=== PATIENT | female | born 1975 | race Caucasian/White ===

== ENCOUNTER → 2020-10-15 09:09 | Outpatient (BNVA) | payer OTHER, SELFPAY | PROVIDERS: Family Provider Nurse Practitioner; PCP Nurse Practitioner; Visit Provider Nurse Practitioner Family | DX: Z20.828 Contact with and (suspected) exposure to other viral communicable diseases (principal); J06.9 Acute upper respiratory infection, unspecified | CPT/HCPCS: 87635 ==

== ENCOUNTER 2021-01-03 09:49 | Emergency (ER) | payer SELFPAY ==
[2021-01-03 10:00] VITALS: BP 134/93; PULSE 77; RESP 16; TEMP 36.8; O2SAT 99; BMI 27.6
--- NOTE | 2021-01-03 10:12 | XR_ITS ---
WS: [id number] Portable AP upright chest, 01/03/2021 Clinical Data: chest pain Comparison: PA and lateral chest, 01/26/2019. Findings: No masses or effusions are seen. The left lower lobe nodule adjacent to left cardiac border has not changed. The heart is normal. The pulmonary vascularity is not increased. No pneumonia or pn eumothorax is seen. Monitor leads on the chest wall. XR/XR chest 1V portable [id number] Impression: Negative chest.
--- NOTE | 2021-01-03 10:13 | ECG_ITS ---
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 Measurements Intervals [place] Rate: 76 P: 37 MT: 169 QRS: 39 QRSD: 91 T: 29 QT: 359 QTc: 404 Interpretive Statements SINUS RHYTHM Compared to ECG 01/26/2019 12:40:21 No significant changes Electronically Signed On 01-03-2021 18:28:23 JIGSAW OPERATOR by Chauncey Rocha M.D. [email or web address]/[id number] f
--- NOTE | 2021-01-03 10:29 | ED_ITS ---
HPI - Chest Pain General: Chief Complaint: Chest Pain Stated Complaint: CP Time Seen by Provider: 01/03/21 09:50 History of Present Illness: HPI narrative: 45-year-old female comes in with chest pain intermittently x3 weeks. 2 days ago had a episode with incresed intesnity and N/V and slightly dyspneic. No radiation of pain. No chest pain at the time she was seen. She smokes, has a hx of hep C and esophogeal erosions. Patient also has a history of panic attacks which she added to her history when seen initially. MD complaint: chest pain Onset (ago): week(s) (3) Timing of current episode: episodic Prior episodes: Yes Pain location: left chest Pain radiation: left arm Severity: moderate Quality: tightness and heaviness Relieving factors: nothing Exacerbating factors: nothing Associated symptoms: Deny abdominal pain, dyspnea, fever(s), nausea or vomiting Review of Systems Const: Denies: fever(s), chills, body aches, change in appetite, fatigue or malaise ENMT: Denies: throat pain, ear or mastoid pain, nasal discharge or nasal congestion Card: Denies: chest pain, edema, dyspnea on exertion or orthopnea Resp: Denies: dyspnea, productive cough or non-productive cough GI: Denies: abdominal pain, nausea, vomiting, hematemesis, coffee ground emesis, diarrhea, constipation, bloating, hematochezia or melena : Denies: flank pain, difficulty voiding, dysuria, urinary frequency or urinary urgency Skin/Breast: Denies: rash or pruritus PFSH ED PFSH: Social History Smoking and tobacco status: current every day smoker Alcohol intake: unknown Physical Exam Const: COMMON NORMALS: no acute distress GENERAL APPEARANCE: cooperative and comfortable ORIENTATION/CONSCIOUSNESS: Yes awake, Yes oriented to person, Yes oriented to place and Yes oriented to time HENMT: COMMON NORMALS: normocephalic, atraumatic and hearing grossly normal bilaterally HEAD & SCALP: normocephalic and atraumatic Neck/C-Spine: COMMON NORMALS: no JVD Resp: COMMON NORMALS: normal respiratory effort, No retractions, No use of accessory muscles and clear to auscultation bilaterally AUSCULTATION: clear to auscultation bilaterally Cardio: COMMON NORMALS: no JVD, regular rate, regular rhythm and No murmurs present (Cardio) RATE: regular rate RHYTHM: regular rhythm GI: COMMON NORMALS: Soft to palpation and No hepatosplenomegaly present AUSCULTATION: Yes normoactive bowel sounds PALPATION: Yes Soft to palpation, No Tenderness to palpation present (GI), No Guarding due to palpation present (GI) and Yes No hepatosplenomegaly present Extremity: COMMON NORMALS: normal to inspection, capillary refill normal, no clubbing, cyanosis or edema, no calf tenderness and no pedal edema Neuro: SENSORIUM/ORIENTATION: Yes oriented to person, Yes oriented to place and Yes oriented to time Skin: COMMON NORMALS: no rashes or lesions noted GENERAL SKIN EXAM: no rashes or lesions noted Course Vital Signs: Vital signs: Vital Signs Temperature 98.2 F 01/03/21 10:00 Pulse Rate 78 01/03/21 12:51 Respiratory Rate 18 01/03/21 12:51 Blood Pressure 125/84 01/03/21 12:51 Pulse Oximetry 97 01/03/21 12:51 MDM - Chest Pain MDM Narrative: Medical decision making narrative: EKG unremarkable troponin is negative. We will go ahead and discharge patient home started on aspirin and Protonix that she is convinced that this is all anxiety I did encourage her to still complete the sestamibi stress test she has recurrent symptoms return. Lab Data: Labs: Lab Results 01/03/21 01/03/21 01/03/21 Range/Units 10:30 10:30 10:30 WBC 8.5 (4.0-10.0) 10^3/ uL RBC 4.58 (4.1-5.3) 10^6/u L Hgb 14.7 (11.5-15.3) g/dL Hct 43.8 (37.0-47.0) % MCV 95.6 (81-99) fL MCH 32.1 (28.0-34.0) pg MCHC 33.6 (30.0-36.0) g/dL RDW 11.8 L (12.1-15.1) % Plt Count 312 (130-400) 10^3/c mm MPV 10.5 H (7.4-10.4) fL Neut % (Auto) 61.5 % Lymph % (Auto) 30.0 % [place] % (Auto) 5.6 % Eos % (Auto) 2.1 % Baso % (Auto) 0.6 % Neut # (Auto) 5.23 (1.8-7.7) 10^3/u L Lymph # (Auto) 2.6 (0.8-4.8) 10^3/u L [place] # (Auto) 0.5 (0.2-0.9) 10^3/u L Eos # (Auto) 0.2 (0.0-0.8) 10^3/u L Baso # (Auto) 0.1 (0.0-0.1) 10^3/u L Nucleated RBC % (a uto) 0 % Nucleated RBCs # 0.0 /100WBC Sodium 136 (136-145) mmol/L Potassium 4.1 (3.5-5.1) mmol/L Chloride 102 (98-107) mmol/L Carbon Dioxide 27 (22-29) mmol/L Anion Gap 11.1 (5-19) BUN 8 (6-20) mg/dL Creatinine 0.7 (0.5-0.9) mg/dL GFR Calculation 90.9 (90-130) mL/min Glucose 85 (65-115) mg/dL Calculated Osmolal ity 280 L (285-295) mOsm/k g Calcium 9.3 (8.5-10.5) mg/dL Total Bilirubin 0.3 (0.15-1.2) mg/dL AST 25 (0-32) U/L ALT 33 (0-33) U/L Alkaline Phosphata se 75 (35-105) IU/L Troponin T Baselin e 6 (0-10) ng/L Total Protein 8.2 (6.6-8.7) g/dL Albumin 4.7 (3.5-5.2) g/dL Globulin 3.5 (1.3-4.6) g/dL Discharge Plan Discharge Patient Disposition: Home Clinical Impression: Atypical chest pain Condition: Stable Prescriptions: New aspirin 81 mg tablet,delayed release (DR/EC) 81 mg PO DAILY Qty: 30 RF: 0 Protonix 40 mg tablet,delayed release (DR/EC) 40 mg PO QAM 56 Days Qty: 56 RF: 0 Discharge Orders: Discharge ED (Routine); Ordered 01/03/21 Ordered By: Rangel Srinivasan Referrals: Julieta Bermudez FNP [Primary Care Provider] - Discharge Diet: Usual diet Discharge Activity: Limit activity as instructed Patient Instructions: Opioid Safety Activity Restrictions/Additional Instructions: Case management will call with an appointment for a sestamibi stress test. Return to the emergency room if you have further problems. Coding Level of Care Code ED Basket Grader for Panda Fwguille Exam Comprehensive
[2021-01-03 10:35] LABS: Basophils # 0.1 10^3/uL (0.0-0.1); Basophils % 0.6 %; Eosinophils # 0.2 10^3/uL (0.0-0.8); Eosinophils % 2.1 %; Hematocrit 43.8 % (37.0-47.0); Hemoglobin 14.7 g/dL (11.5-15.3); Lymphocytes # 2.6 10^3/uL (0.8-4.8); Mean Corpuscular HGB Conc 33.6 g/dL (30.0-36.0); Mean Corpuscular Hemoglobin 32.1 pg (28.0-34.0); Mean Corpuscular Volume 95.6 fL (81-99); Mean Platelet Volume 10.5 fL (7.4-10.4); Monocytes # 0.5 10^3/uL (0.2-0.9); Monocytes % 5.6 %; Neutrophils # 5.23 10^3/uL (1.8-7.7); Neutrophils % 61.5 %; Nucleated Red Blood Cells % 0 %; Platelet Count 312 10^3/cmm (130-400); Red Blood Count 4.58 10^6/uL (4.1-5.3); Red Cell Distribution Width 11.8 % (12.1-15.1); White Blood Count 8.5 10^3/uL (4.0-10.0)
[2021-01-03 10:40] VITALS: BP 127/94; PULSE 78; RESP 14; O2SAT 96
[2021-01-03 10:49] VITALS: RESP 17
[2021-01-03 10:53] LABS: Alanine Aminotransferase 33 U/L (0-33); Albumin Level 4.7 g/dL (3.5-5.2); Alkaline Phosphatase 75 IU/L (35-105); Anion Gap 11.1 (5-19); Aspartate Amino Transferase 25 U/L (0-32); Blood Urea Nitrogen 8 mg/dL (6-20); Calcium 9.3 mg/dL (8.5-10.5); Carbon Dioxide 27 mmol/L (22-29); Chloride 102 mmol/L (98-107); Globulin 3.5 g/dL (1.3-4.6); Glomerular Filtration Rate 90.9 mL/min (90-130); Glucose 85 mg/dL (65-115); Osmolality Calculated 280 mOsm/kg (285-295); Potassium 4.1 mmol/L (3.5-5.1); Sodium 136 mmol/L (136-145); Total Bilirubin 0.3 mg/dL (0.15-1.2); Total Protein 8.2 g/dL (6.6-8.7); Troponin(5th) Baseline 6 ng/L (0-10)
[2021-01-03 11:49] VITALS: BP 122/84; PULSE 75; RESP 19; O2SAT 96
[2021-01-03 12:00] VITALS: BP 125/84; PULSE 78; RESP 18; O2SAT 97
[2021-01-03 12:51] VITALS: BP 125/84; PULSE 78; RESP 18; O2SAT 97
--- NOTE | 2021-01-07 07:25 | DCPLANNER ---
warehouse manager had message to schedule an outpatient stress test for patient. warehouse manager faxed signed order to centralized scheduling for the test to be scheduled. warehouse manager will call for appointment information.
--- NOTE | 2021-01-16 09:18 | DCPLANNER ---
Patient has an outpatient stress test scheduled for Friday, January 22, 2021 at 10:00. Centralized scheduling will call patient with appointment information.
--- NOTE | 2021-01-23 15:52 | DCPLANNER ---
Patient had a follow up appointment scheduled for 01.22.21 for an outpatient stress test - patient did not attend appointment.
== END 2021-01-03 12:51 | disposition home or self-care (01) ==
PROVIDERS: Emergency Provider Family Medicine; PCP Nurse Practitioner
DX: R07.89 Other chest pain (principal); F17.210 Nicotine dependence, cigarettes, uncomplicated
CPT/HCPCS: 71045; 80053; 84484; 85025; 93005; 99283

== ENCOUNTER → 2021-07-11 09:34 | Outpatient (BNVA) | payer OTHER, SELFPAY | PROVIDERS: PCP Nurse Practitioner; Visit Provider Nurse Practitioner Family | DX: Z20.822 Contact with and (suspected) exposure to COVID-19 (principal) | CPT/HCPCS: 87635 ==

== ENCOUNTER 2021-09-21 09:57 | Emergency (ER) | payer MEDICAID, SELFPAY ==
[2021-09-21 10:04] VITALS: BP 137/99; PULSE 86; RESP 18; TEMP 36.7; O2SAT 95; BMI 26.4
--- NOTE | 2021-09-21 10:10 | ED_ITS ---
HPI - GI Bleed General: Chief complaint: GI Bleed Stated complaint: ABD PAIN; VOGT X 1 WEEK; BLOOD STOOL Time Seen by Provider: 09/21/21 10:09 History of Present Illness: HPI Narrative: Ms. Irizarry is a 46-year-old lady with significant past medical history of hepatitis C who presents to the emergency department due to abdominal pain and headache. Symptom onset was subacute approximately 1 week ago. She initially endorses left upper quadrant abdominal pain which is sharp in nature and episodic. She subsequently developed a right sided headache. She does have a history of headaches. Overall intensity of symptoms is moderate. Course has been worsening. No associated new neurologic symptoms with this. Associated with her abdominal pain she has had nausea but no vomiting. She has had blood in her stool after bowel movements and wiping. No other specific exacerbating, alleviating, or provoking factors identified. No reported signs of systemic illness. Review of Systems General: Reports: 10 or more systems reviewed and unremarkable except in HPI and below PFSH ED PFSH: Social History Smoking and tobacco status: current every day smoker Alcohol intake: unknown Physical Exam Narrative: EXAM NARRATIVE: GENERAL/CONSTITUTIONAL - well-appearing. No acute distress. Eyes - PERRL, no conjunctival injection ENMT - Atraumatic external nose and ears. Moist mucous membranes NECK - supple. trachea midline CARDIOVASCULAR - regular rate and rhythm. RESPIRATORY -clear to auscultation bilaterally. ABDOMEN/GI -generalized tenderness palpation without evidence of peritonitis. MSK - Extremities without obvious deformity or tenderness to palpation SKIN - Warm, Dry NEURO - alert and appropriately oriented. No focal neurologic deficits. Course ED course: - Patient was seen and evaluated by me at bedside - Patient placed on cardiac monitors, IV access obtained - Initial evaluation notable for no acute distress, nontoxic appearance. Abdominal exam as noted. No neurologic deficits, headache consistent with patient's baseline headache. - Labs notable for normal hemoglobin. - Imaging notable for no acute finding with exception of large amount of stool throughout the large bowel. - Prior to completion of ED evaluation including prior to rectal exam the patient left AGAINST MEDICAL ADVICE. The exact reason for patient leaving was somewhat unclear although reportedly patient desired to smoke. I was not notified until patient had already left ED and therefore patient did not receive any discharge instructions or results of ED evaluation. Vital Signs: Vital signs: Vital Signs Temperature 98.1 F 09/21/21 10:04 Pulse Rate 89 09/21/21 12:31 Respiratory Rate 16 09/21/21 12:31 Blood Pressure 133/72 09/21/21 12:31 Pulse Oximetry 97 09/21/21 12:31 MDM - GI Bleed Medical Records: Attestation: I reviewed the patient's medical records. Lab Data: Attestation: I reviewed the patient's lab results. Labs: Lab Results 09/21/21 09/21/21 09/21/21 10:15 10:15 10:23 WBC 8.2 10^3/uL 10^3/ uL (4.0-10.0) RBC 4.51 10^6/uL 10^6 /uL (4.1-5.3) Hgb 15.0 g/dL g/dL (11.5-15.3) Hct 42.7 % % (37.0-47.0) MCV 94.7 fl fl (81-99) MCH 33.3 pg pg (28.0-34.0) MCHC 35.1 g/dL g/dL (30.0-36.0) RDW 11.1 % L % (12.1-15.1) Plt Count 302 10^3/cmm 10^3 /cmm (130-400) MPV 11.0 fL H fL (7.4-10.4) Neut % (Auto) 65.6 % % Lymph % (Auto) 24.0 % % [place] % (Auto) 6.5 % % Eos % (Auto) 3.3 % % Baso % (Auto) 0.5 % % Neut # (Auto) 5.36 10^3/uL 10^3 /uL (1.8-7.7) Lymph # (Auto) 2.0 10^3/uL 10^3/ uL (0.8-4.8) [place] # (Auto) 0.5 10^3/uL 10^3/ uL (0.2-0.9) Eos # (Auto) 0.3 10^3/uL 10^3/ uL (0.0-0.8) Baso # (Auto) 0.0 10^3/uL 10^3/ uL (0.0-0.1) Nucleated RBC % (a uto) 0 % % Nucleated RBCs # 0.0 /100WBC /100W BC Sodium Potassium Chloride Carbon Dioxide Anion Gap BUN Creatinine GFR Calculation Glucose Calculated Osmolal ity Lactic Acid Lactate Calcium Total Bilirubin AST ALT Alkaline Phosphata se Total Protein Albumin Globulin Lipase HCG, Qual Negative (Negative) Urine Color Yellow (Yellow) Urine Appearance Cloudy (CLEAR) Urine pH 9 H (5-7) Ur Specific Gravit y 1.015 (1.005-1.030) Urine Protein Neg (Negative) Urine Glucose (UA) Norm (Normal) Urine Ketones Negative (Negative) Urine Blood Neg (Negative) Urine Nitrate Negative (Negative) Urine Bilirubin Neg (Negative) Prot Sulfosalicyli c Acd Negative (Negative) Urine Urobilinogen Norm mg/dL mg/dL (Negative) Ur Leukocyte Griselda ase Negative (Negative) Urine RBC None /hpf /hpf (0-2) Urine WBC None /hpf /hpf (0-5) Ur Squamous Epith Cells 0-4 /hpf H /hpf (0-5) Amorphous Sediment 3+ /hpf /hpf Urine Bacteria Trace /hpf /hpf (NONE) 09/21/21 09/21/21 09/21/21 10:23 10:23 11:42 WBC RBC Hgb Hct MCV MCH MCHC RDW Plt Count MPV Neut % (Auto) Lymph % (Auto) [place] % (Auto) Eos % (Auto) Baso % (Auto) Neut # (Auto) Lymph # (Auto) [place] # (Auto) Eos # (Auto) Baso # (Auto) Nucleated RBC % (a uto) Nucleated RBCs # Sodium 135 mmol/L L mmol /L (136-145) Potassium 4.5 mmol/L mmol/L (3.5-5.1) Chloride 96 mmol/L L mmol/ L (98-107) Carbon Dioxide 28 mmol/L mmol/L (22-29) Anion Gap 15.5 (5-19) BUN 7 mg/dL mg/dL (6-20) Creatinine 0.8 mg/dL mg/dL (0.5-0.9) GFR Calculation 77.6 mL/min L mL/ min (90-130) Glucose 92 mg/dL mg/dL (65-115) Calculated Osmolal ity 278 mOsm/kg L mOs m/kg (285-295) Lactic Acid 0.4 mmol/L L mmol /L (0.5-2.2) Lactate Cancelled Calcium 9.5 mg/dL mg/dL (8.5-10.5) Total Bilirubin 0.2 mg/dL mg/dL (0.15-1.2) AST 26 U/L U/L (0-32) ALT 35 U/L H U/L (0-33) Alkaline Phosphata se 80 IU/L IU/L (35-105) Total Protein 7.4 g/dL g/dL (6.6-8.7) Albumin 4.4 g/dL g/dL (3.5-5.2) Globulin 3.0 g/dL g/dL (1.3-4.6) Lipase 23 U/L U/L (13-60) HCG, Qual Urine Color Urine Appearance Urine pH Ur Specific Gravit y Urine Protein Urine Glucose (UA) Urine Ketones Urine Blood Urine Nitrate Urine Bilirubin Prot Sulfosalicyli c Acd Urine Urobilinogen Ur Leukocyte Griselda ase Urine RBC Urine WBC Ur Squamous Epith Cells Amorphous Sediment Urine Bacteria Discharge Plan Discharge Patient Disposition: Left Against Medical Advice Prescriptions: No Action No Known Home Medications RF: 0 Coding Level of Care Code ED Cutter Grinder Operator for Chg Kylee
[2021-09-21 10:28] VITALS: BP 132/96; PULSE 74; RESP 17; O2SAT 96
--- NOTE | 2021-09-21 10:29 | CTR_ITS ---
PROCEDURE INFORMATION: Exam: CT Abdomen And Pelvis With Contrast Exam date and time: 09/21/2021 10:29 AM Age: 46 years old Clinical indication: Abdominal pain; Localized; Left upper quadrant (luq); Additional info: Luq abdominal pain, melena TECHNIQUE: Imaging protocol: Computed tomography of the abdomen and pelvis with contrast. Radiation optimization: All CT scans at this facility use at least one of these dose optimization techniques: automated exposure control; mA and/or kV adjustment per patient size (includes targeted exams where dose is matched to clinical indication); or iterative reconstruction. Contrast material: OMNI 300; Contrast volume: 95 ml; Contrast route: INTRAVENOUS (IV); COMPARISON: CT chest wo con [id number] 02/15/2019 1:09 PM RADIATION DOSE METRICS: Total DLP (mGy-cm): 1202.01 FINDINGS: Lungs: Mild dependent atelectasis is present. Liver: Normal. No mass. Gallbladder and bile ducts: Normal. No calcified stones. No ductal dilation. Pancreas: Normal. No ductal dilation. Spleen: Normal. No splenomegaly. Adrenal glands: Normal. No mass. Kidneys and ureters: Sub cm cyst lower pole right kidney Stomach and bowel: Large amount of stool throughout the large bowel. Appendix: No evidence of appendicitis. Intraperitoneal space: No free fluid within the pelvis or within the dependent portions of the peritoneum. Vasculature: Flow within the superior mesenteric artery, celiac trunk and inferior mesenteric arteries. Lymph nodes: Numerous small subcentimeter lymph nodes in the aorta caval region. Urinary bladder: Unremarkable as visualized. Reproductive: Prior hysterectomy. Small ovarian cyst bilaterally. Bones/joints: Unremarkable. No acute fracture. Soft tissues: Unremarkable. Other findings: No acute intra-abdominal process. No inflammatory process. No obstruction. CT/CT abdomen pelvis w con* [id number] IMPRESSION: 1. No acute intra-abdominal process. No inflammatory process. No obstruction. 2. No free fluid within the pelvis or within the dependent portions of the peritoneum. 3. Large amount of stool throughout the large bowel. 4. Small ovarian cyst bilaterally. COMMENTS: Consistent with the [employer]'s Incidental Findings Committee white paper (J Am Evy Radiol 2018): Any incidental renal lesion less than 1 cm or classified as too small to characterize, or any incidental cystic renal lesion characterized as simple-appearing, is likely benign. No follow-up imaging is recommended for these lesions per consensus recommendations based on imaging criteria. Radiation Dose CTDIVOL = (mGy): DLP = 1202.01 (mGy-cm)
[2021-09-21] MEDS: sodium chloride 0.9% 1,000 ML 999 ML IV (10:51)
[2021-09-21] MEDS: ondansetron 2 mg/ML SDV 2 mL 4 MG IVP (10:52)
[2021-09-21 10:53] VITALS: RESP 18
[2021-09-21] MEDS: pantoprazole 40 mg SDV 80 MG IVP (10:53)
[2021-09-21] MEDS: fentaNYL 50 mcg/mL INJ 2mL IVP (10:53)
[2021-09-21 10:58] VITALS: BP 132/96; PULSE 91; RESP 17; O2SAT 96
[2021-09-21 11:06] LABS: Add Urine Microscopic? YES; Bilirubin Urine Neg (Negative); Blood Urine Neg (Negative); Glucose Urine UA Norm (Normal); Ketones Urine Negative (Negative); Leukocyte Esterase Urine Negative (Negative); Nitrate Urine Negative (Negative); Protein Urine Neg (Negative); Specific Gravity, Urine 1.015 (1.005-1.030); Squamous Epithelial Cell Urine 0-4 /hpf (0-5); Sulfosalicylic Acid Urine Negative (Negative); Urine Appearance Cloudy (CLEAR); Urine Color Yellow (Yellow); Urobilinogen Urine Norm (Negative); pH Urine 9 (5-7)
[2021-09-21 11:07] LABS: Add Urine Culture? No; Amorphous Sediment Urine 3+ /hpf; Bacteria Urine TRACE /hpf; HCG Qualitative Urine. Negative (Negative)
[2021-09-21 11:17] LABS: Basophils % 0.5 %; Eosinophils # 0.3 10^3/uL (0.0-0.8); Eosinophils % 3.3 %; Hematocrit 42.7 % (37.0-47.0); Mean Corpuscular HGB Conc 35.1 g/dL (30.0-36.0); Mean Corpuscular Hemoglobin 33.3 pg (28.0-34.0); Mean Corpuscular Volume 94.7 fl (81-99); Monocytes # 0.5 10^3/uL (0.2-0.9); Monocytes % 6.5 %; Neutrophils # 5.36 10^3/uL (1.8-7.7); Neutrophils % 65.6 %; Nucleated Red Blood Cells % 0 %; Platelet Count 302 10^3/cmm (130-400); Red Blood Count 4.51 10^6/uL (4.1-5.3); Red Cell Distribution Width 11.1 % (12.1-15.1); White Blood Count 8.2 10^3/uL (4.0-10.0)
[2021-09-21 11:33] LABS: Alanine Aminotransferase 35 U/L (0-33); Albumin Level 4.4 g/dL (3.5-5.2); Alkaline Phosphatase 80 IU/L (35-105); Anion Gap 15.5 (5-19); Aspartate Amino Transferase 26 U/L (0-32); Blood Urea Nitrogen 7 mg/dL (6-20); Calcium 9.5 mg/dL (8.5-10.5); Carbon Dioxide 28 mmol/L (22-29); Chloride 96 mmol/L (98-107); Glomerular Filtration Rate 77.6 mL/min (90-130); Glucose 92 mg/dL (65-115); Lipase 23 U/L (13-60); Osmolality Calculated 278 mOsm/kg (285-295); Potassium 4.5 mmol/L (3.5-5.1); Sodium 135 mmol/L (136-145); Total Bilirubin 0.2 mg/dL (0.15-1.2); Total Protein 7.4 g/dL (6.6-8.7)
[2021-09-21] MEDS: iohexol 300 mg/mL 100 mL Btl IV (12:20)
[2021-09-21 12:31] VITALS: BP 133/72; PULSE 89; RESP 16; O2SAT 97
[2021-09-21 12:39] LABS: Lactic Sepsis W/Reflex 0.4 mmol/L (0.5-2.2)
== END 2021-09-21 14:20 | disposition left against medical advice (07) ==
PROVIDERS: Emergency Provider Emergency Medicine
DX: R10.9 Unspecified abdominal pain (principal); R51.9 Headache, unspecified; Z53.21 Procedure and treatment not carried out due to patient leaving prior to being seen by health care provider; F17.210 Nicotine dependence, cigarettes, uncomplicated; Z86.19 Personal history of other infectious and parasitic diseases
CPT/HCPCS: 36415; 74177; 80053; 81001; 81025; 83605; 83690; 85025; 96361; 96374; 96375; 99284; C9113; J2405; J3010; J7030; Q9967

== ENCOUNTER → 2022-02-23 15:56 | Outpatient (BNVA) | payer MEDICAID, SELFPAY | PROVIDERS: Visit Provider Internal Medicine | DX: B19.20 Unspecified viral hepatitis C without hepatic coma (principal); R76.8 Other specified abnormal immunological findings in serum | CPT/HCPCS: 80053; 82105; 86705; 86706; 87340; 87522; 87902 ==

== ENCOUNTER 2022-05-06 13:46 | Oncology outpatient (recurring) (ONCR) | payer MEDICAID, SELFPAY | END 2022-05-06 23:59 | disposition home or self-care (01) | PROVIDERS: Visit Provider Internal Medicine Medical Oncology | DX: E83.110 Hereditary hemochromatosis (principal) | CPT/HCPCS: 99215 ==

== ENCOUNTER 2022-06-04 12:12 | Outpatient (CLI) | payer MEDICAID, SELFPAY ==
[2022-06-06 19:12] LABS: HEP C RNA Viral Load Quant <1.18 NOT DETECTED Log IU/mL (NOT DETECTED); HEP C RNA Viral Load Quant <15 NOT DETECTED IU/mL (NOT DETECTED)
== END 2022-06-04 12:13 | disposition home or self-care (01) ==
LOC: LAB 12:15
PROVIDERS: PCP Nurse Practitioner Family; Visit Provider Internal Medicine
DX: B19.20 Unspecified viral hepatitis C without hepatic coma (principal)
CPT/HCPCS: 87522

== ENCOUNTER 2023-08-03 08:54 | Emergency (ER) | payer MEDICAID, SELFPAY ==
--- NOTE | 2023-08-03 09:02 | ECG_ITS ---
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 Measurements Intervals [place] Rate: 85 P: 24 MD: 159 QRS: 17 QRSD: 97 T: 29 QT: 360 QTc: 430 Interpretive Statements SINUS RHYTHM LOW QRS VOLTAGE IN PRECORDIAL LEADS [QRS DEFLECTION < 1.0 mV IN CHEST LEADS] INTERPRETATION BASED ON A DEFAULT AGE OF 40 YEARS Compared to ECG 01/03/2021 10:05:34 Low QRS voltage now present Electronically Signed On 08-03-2023 12:56:10 CDT by Maria Elena Tim M.D. [id number] f
[2023-08-03 09:07] VITALS: BP 162/119; PULSE 91; RESP 18; TEMP 36.8; O2SAT 93; BMI 28.3
--- NOTE | 2023-08-03 09:09 | XR_ITS ---
WS: [id number] EXAMINATION: XR chest 1V portable [id number] REASON FOR EXAM: dyspnea/cough COMPARISON: 01/03/2021 ORDER DATE: 08/03/2023 9:12 AM TECHNIQUE: A single, portable frontal chest x-ray was obtained. X-RAY FINDINGS: The lungs are clear. Pleural spaces are clear. No pleural effusions or pneumothorax. Cardiomediastinal silhouette is normal. No evidence for pulmonary edema. Soft tissue and osseous structures are unremarkable. No tubes or lines are present. IMPRESSION: Unremarkable frontal portable chest x-ray.
--- NOTE | 2023-08-03 09:10 | W.ED.GENADLT ---
HPI - General Adult General: Chief complaint: Weakness Stated complaint: right side weakness, chest pain Time Seen by Provider: 08/03/23 09:05 Source: patient Mode of arrival: ambulatory History of Present Illness: 47-year-old female presents emergency room complaining of weakness in her right arm. Over the weekend about 3 days ago she passed out while coming home. She was out for period of time when she got home she passed out again. When she woke up she said her right arm she could not extend at the wrist. She is able to grasp objects but she can extend the wrist no other symptoms or focal neurologic deficits noted she is at some chest and epigastric discomfort but that has resolved. Associated symptoms: Deny dyspnea or headache(s) Review of Systems Const: Denies: chills Resp: Denies: dyspnea GI: Denies: abdominal pain : Denies: dysuria Musc: Denies: neck pain or back pain Skin/Breast: Denies: pruritus Neuro: Denies: headache(s) PFS ED PFSH: Medical History Anxiety and depression GERD (gastroesophageal reflux disease) Hepatitis C without hepatic coma History of intravenous drug use in remission Nicotine dependence, unspecified, uncomplicated Panic disorder [episodic paroxysmal anxiety] Polysubstance abuse Unspecified asthma, uncomplicated Surgical History History of hysterectomy (2009) Family History Grandfather No problems noted. Father Hypertension CAD (coronary artery disease) Dementia Mother Cancer Lung cancer Lung disease Sister Clotting disorder Other Chronic kidney disease (CKD) Hyperlipidemia Psychiatric illness Stroke Denies family history of Diabetes Suicide Anesthesia complication Bleeding disorder Social History Smoking and tobacco status: current every day smoker (1 ppd) cigarettes Packs smoked per day: 1 Alcohol intake: former Substance/Drug Use: former Physical Exam Const: GENERAL APPEARANCE: cooperative and comfortable ORIENTATION/CONSCIOUSNESS: Yes awake, Yes oriented to person, Yes oriented to place and Yes oriented to time HENMT: COMMON NORMALS: normocephalic, atraumatic and hearing grossly normal bilaterally HEAD & SCALP: normocephalic and atraumatic Resp: COMMON NORMALS: normal respiratory effort, No retractions, No use of accessory muscles and clear to auscultation bilaterally AUSCULTATION: clear to auscultation bilaterally Cardio: COMMON NORMALS: regular rate, regular rhythm and No murmurs present (Cardio) RATE: regular rate RHYTHM: regular rhythm GI: COMMON NORMALS: Soft to palpation and No hepatosplenomegaly present AUSCULTATION: Yes normoactive bowel sounds PALPATION: Yes Soft to palpation, No Tenderness to palpation present (GI), No Guarding due to palpation present (GI) and Yes No hepatosplenomegaly present Extremity: COMMON NORMALS: normal to inspection, capillary refill normal, no clubbing, cyanosis or edema, no calf tenderness and no pedal edema OTHER: Radial nerve deficit in the right arm unable to extend at the wrist the remainder of her extremity exam is normal otherwise she is neurovascular intact no other focal neurologic deficits are noted on exam. Cranial nerves II to XII otherwise grossly intact. Neuro: SENSORIUM/ORIENTATION: Yes oriented to person, Yes oriented to place and Yes oriented to time Skin: COMMON NORMALS: no rashes or lesions noted GENERAL SKIN EXAM: no rashes or lesions noted Course Vital Signs: Vital signs: Vital Signs Temperature 98.2 F 08/03/23 09:07 Pulse Rate 87 08/03/23 11:20 Respiratory Rate 16 08/03/23 11:20 Blood Pressure 129/98 08/03/23 11:20 Pulse Oximetry 97 08/03/23 11:20 Oxygen Delivery Me thod Room Air 08/03/23 10:07 [facility] - General Adult Medical Decision Making Patient has a history of alcohol abuse she did pass out recently suspect she has a radial nerve palsy she has no other focal neurologic deficits we will place her in a cock-up splint and refer her to physical therapy and neurology. Discussed the etiology of the deficit with her. She concurs that this is very likely what happened. Her syncopal episode was due to alcohol use by her own admission. Medical Records I reviewed the patient's medical records. Lab Data I reviewed the patient's lab results. 08/03/23 09:19 10 09:19 Laboratory Results WBC 7.91 10^3/uL (3.29-11.43) 08/03/23 09:19 RBC 4.65 10^6/uL (3.85-5.65) 08/03/23 09:19 Hgb 15.60 g/dL (11.27-16.99) 08/03/23 09:19 Hct 45.5 % (36-47) 08/03/23 09:19 MCV 97.8 fl (85-98) 08/03/23 09:19 MCH 33.5 pg (27-33) H 08/03/23 09:19 MCHC 34.3 g/dL (30-55) 08/03/23 09:19 RDW 11.9 % (12.1-15.1) L 08/03/23 09:19 Plt Count 261 10^3/cmm (157-399) 08/03/23 09:19 MPV 9.9 fL (7.4-10.4) 08/03/23 09:19 Neut % (Auto) 68.8 % 08/03/23 09:19 Lymph % (Auto) 22.5 % 08/03/23 09:19 [place] % (Auto) 4.6 % 08/03/23 09:19 Eos % (Auto) 3.5 % 08/03/23 09:19 Baso % (Auto) 0.3 % 08/03/23 09:19 Neut # (Auto) 5.45 10^3/uL (1.8-7.7) 08/03/23 09:19 Lymph # (Auto) 1.8 10^3/uL (0.8-4.8) 08/03/23 09:19 [place] # (Auto) 0.4 10^3/uL (0.2-0.9) 08/03/23 09:19 Eos # (Auto) 0.3 10^3/uL (0.0-0.8) 08/03/23 09:19 Baso # (Auto) 0.0 10^3/uL (0.0-0.1) 08/03/23 09:19 Nucleated RBC % (auto) 0 % 08/03/23 09:19 Nucleated RBCs # 0.0 /100WBC 08/03/23 09:19 Sodium 137 mmol/L (136-145) 08/03/23 09:19 Potassium 4.0 mmol/L (3.5-5.1) 08/03/23 09:19 Chloride 100 mmol/L (98-107) 08/03/23 09:19 Carbon Dioxide 27 mmol/L (22-29) 08/03/23 09:19 Anion Gap 14.0 (5-19) 08/03/23 09:19 BUN 9 mg/dL (6-20) 08/03/23 09:19 Creatinine 0.8 mg/dL (0.5-0.9) 08/03/23 09:19 GFR Calculation 77.2 mL/min (90-130) L 08/03/23 09:19 Glucose 107 mg/dL (65-115) 08/03/23 09:19 Calculated Osmolality 283 mOsm/kg (285-295) L 08/03/23 09:19 Calcium 8.9 mg/dL (8.5-10.5) 08/03/23 09:19 Total Bilirubin 0.3 mg/dL (0.15-1.2) 08/03/23 09:19 AST 16 U/L (0-32) 08/03/23 09:19 ALT 19 U/L (0-33) 08/03/23 09:19 Alkaline Phosphatase 91 U/L (35-105) 08/03/23 09:19 Troponin T Baseline 7 ng/L (0-10) 08/03/23 09:19 Total Protein 6.9 g/dL (6.6-8.7) 08/03/23 09:19 Albumin 4.1 g/dL (3.5-5.2) 08/03/23 09:19 Globulin 2.8 g/dL (1.3-4.6) 08/03/23 09:19 All radiology interpretation(s) finalized by discharge Discharge Plan Discharge Patient Disposition: Home Clinical Impression: Acute radial nerve palsy Condition: Stable Prescriptions: New prednisone 20 mg tablet 20 mg PO TID Qty: 15 0RF Rx Instructions: 1 p.o. 3 times daily x3 days, 1 p.o. twice daily x2 days, 1 p.o. daily x2 days Discharge Orders: Discharge ED (Routine); Ordered 08/03/23 Ordered By: Rangel Srinivasan Referrals: Michelle Martinez FNP [Primary Care Provider] - Discharge Diet: Usual diet Discharge Activity: Increase activity as tolerated Patient Instructions: Opioid Safety, Pain Management Activity Restrictions/Additional Instructions: Wear splint until released. Case management make arrangements for you to follow-up with neurology. Coding Level of Care Code ED Legal Executive for Panda Pichardo
--- NOTE | 2023-08-03 09:13 | CT_ITS ---
WS: [id number] CT HEAD TECHNIQUE: Noncontrast CT of the head obtained from the skullbase to the vertex. CLINICAL INFORMATION: POSSILBE POST STROKE COMPARISON: 11/09/2011 DLP: 989.[address] scans at [facility] use at least one of these dose optimization techniques: automated e xposure control; mA and/or kV adjustment per patient size (includes targeted exams where dose is matc hed to clinical indication); or iterative reconstruction. FINDINGS: No evidence of intracranial hemorrhage or mass effect. Ventricular system and basal cisterns are jimenez nt. No extra-axial fluid collections. No evidence of mass or mass effect. Normal cavazos-white different iation. Incidental slightly low-lying cerebellar tonsils. Paranasal sinuses and mastoid air cells are well aerated. .Normal visualized soft tissues. IMPRESSION: 1. No evidence of intracranial hemorrhage or mass effect. 2. No acute intracranial findings.
[2023-08-03 09:25] LABS: Basophils % 0.3 %; Eosinophils # 0.3 10^3/uL (0.0-0.8); Eosinophils % 3.5 %; Hematocrit 45.5 % (36-47); Lymphocytes # 1.8 10^3/uL (0.8-4.8); Lymphocytes % 22.5 %; Mean Corpuscular HGB Conc 34.3 g/dL (30-55); Mean Corpuscular Hemoglobin 33.5 pg (27-33); Mean Corpuscular Volume 97.8 fl (85-98); Mean Platelet Volume 9.9 fL (7.4-10.4); Monocytes # 0.4 10^3/uL (0.2-0.9); Monocytes % 4.6 %; Neutrophils # 5.45 10^3/uL (1.8-7.7); Neutrophils % 68.8 %; Nucleated Red Blood Cells % 0 %; Platelet Count 261 10^3/cmm (157-399); Red Blood Count 4.65 10^6/uL (3.85-5.65); Red Cell Distribution Width 11.9 % (12.1-15.1); White Blood Count 7.91 10^3/uL (3.29-11.43)
--- NOTE | 2023-08-03 09:30 | PC.PHAR ---
pt states she takes no rx or otc medications-ext med history shows no meds-pt states she hasnt taken meds in over 5 months
[2023-08-03 09:31] VITALS: BP 159/101; PULSE 90; RESP 18; O2SAT 100
--- NOTE | 2023-08-03 09:33 | PC.NURSE ---
pt is currently hypertensive, pt does not have HTN hx
[2023-08-03] MEDS: sucralfate 1 gm Tablet PO (09:51)
[2023-08-03 09:59] LABS: Alanine Aminotransferase 19 U/L (0-33); Albumin Level 4.1 g/dL (3.5-5.2); Alkaline Phosphatase 91 U/L (35-105); Aspartate Amino Transferase 16 U/L (0-32); Blood Urea Nitrogen 9 mg/dL (6-20); Calcium 8.9 mg/dL (8.5-10.5); Carbon Dioxide 27 mmol/L (22-29); Chloride 100 mmol/L (98-107); Globulin 2.8 g/dL (1.3-4.6); Glomerular Filtration Rate 77.2 mL/min (90-130); Glucose 107 mg/dL (65-115); Osmolality Calculated 283 mOsm/kg (285-295); Sodium 137 mmol/L (136-145); Total Bilirubin 0.3 mg/dL (0.15-1.2); Total Protein 6.9 g/dL (6.6-8.7)
[2023-08-03 10:06] LABS: Troponin(5th) Baseline 7 ng/L (0-10)
[2023-08-03 10:07] VITALS: BP 124/92; PULSE 75; RESP 16; O2SAT 97
[2023-08-03 11:20] VITALS: BP 129/98; PULSE 87; RESP 16; O2SAT 97
--- NOTE | 2023-08-03 14:44 | PC.SOCIAL ---
Neurology Follow Up Patient's referral sent to neurology at this time. Clinic to contact patient with appt date/time.
--- NOTE | 2023-08-07 14:27 | PC.SOCIAL ---
PT Pt referral sent at this time. Clinic to contact patient with appt. date/time.
== END 2023-08-03 11:23 | disposition home or self-care (01) ==
PROVIDERS: Emergency Provider Family Medicine; PCP Nurse Practitioner Family
DX: G56.31 Lesion of radial nerve, right upper limb (principal); Z86.19 Personal history of other infectious and parasitic diseases; F17.210 Nicotine dependence, cigarettes, uncomplicated
CPT/HCPCS: 70450; 71045; 80053; 84484; 85025; 93005; 99285

== ENCOUNTER 2025-01-26 09:16 | Emergency (ER) | payer BC, MEDICAID, SELFPAY ==
[2025-01-26 09:38] VITALS: BP 175/109; PULSE 89; RESP 20; TEMP 36.4; O2SAT 98; BMI 30.9
--- NOTE | 2025-01-26 09:51 | XR_ITS ---
WS: [id number] Exam: XR hand LT min 3V* [id number] Date/Time of Exam: 01/26/2025 10:30 AM Reason For Exam: injury No acute fracture. The joints are preserved. A ring obscures parts of the fourth proximal phalanx. No soft tissue foreign bodies are seen. XR/XR hand LT min 3V* [id number] IMPRESSION: 1. No fracture or other significant finding.
--- NOTE | 2025-01-26 11:44 | W.ED.UPPEXIN ---
HPI - Extremity Injury (Upper) General: Chief Complaint: Extremity Injury, Upper Stated Complaint: lt hand inj Time Seen by Provider: 01/26/25 09:23 Source: patient Mode of arrival: ambulatory Limitations: no limitations History of Present Illness: Patient is a 49-year-old female presents to ED today complaining of left hand pain that began yesterday after she accidentally dropped a concrete block on it. She does report swelling. No obvious deformity. MD complaint: injury to: left and hand Onset (ago): day(s) (yesterday) Other Extremity Injury: Left: hand Other injuries: none Place: home Severity: moderate Relieving factors: immobilization Exacerbating factors: movement of extremity Context: direct blow Associated symptoms: Reports no associated symptoms; Denies weakness in extremities Related Data Previous Rx's ?Medication ?Instructions ?Recorded prednisone 20 mg tablet 20 mg PO TID #15 tabs 08/03/23 Allergies Allergy/AdvReac Type Severity Reaction Status Date / Time codeine Allergy rash Verified 01/26/25 09:46 fentanyl Allergy ADR-Agitate Verified 01/26/25 09:46 d Review of Systems Musc: Reports: extremity pain (L hand) and extremity swelling (L hand) Neuro: Denies: numbness in extremities, weakness in extremities or sensory changes PFSH ED PFSH: Medical History History of intravenous drug use in remission Anxiety and depression Polysubstance abuse Panic disorder [episodic paroxysmal anxiety] Nicotine dependence, unspecified, uncomplicated Unspecified asthma, uncomplicated GERD (gastroesophageal reflux disease) Hepatitis C without hepatic coma Surgical History History of hysterectomy (2009) Family History Grandfather No problems noted. Father Hypertension CAD (coronary artery disease) Dementia Mother Cancer Lung cancer Lung disease Sister Clotting disorder Other Chronic kidney disease (CKD) Hyperlipidemia Psychiatric illness Stroke Denies family history of Diabetes Suicide Anesthesia complication Bleeding disorder Social History Smoking and tobacco/nicotine status: current every day tobacco/nicotine user (1 ppd) cigarettes Packs smoked per day: 1 Alcohol intake: former Substance/Drug Use: former Physical Exam Const: COMMON NORMALS: no acute distress, average body habitus, no limitations, healthy appearing, alert and well nourished OTHER: BP elevated-states this is because she is in pain Extremity: COMMON NORMALS: full ROM and capillary refill normal GENERAL: Yes normal exam except as noted LEFT UPPER EXTREMITY: Yes hand & digits (contusion dorsal ulnar L hand) Left hand and digits: Yes inspection (normal gross inspection; no bony deformity) and Yes neurovascular exam (normal) OTHER: rings present on L ring finger; snug but easily movable-states she is not able to get them off at the moment but does not want them cut off; no evidence for ischemia-no color change, normal cap refill, normal sensation Neuro: COMMON NORMALS: moves all extremities, no focal motor deficits and no sensory deficits noted SENSORIUM/ORIENTATION: Yes alert Course Vital Signs: Vital signs: Vital Signs Temperature 97.6 F 01/26/25 09:38 Pulse Rate 98 01/26/25 11:46 Respiratory Rate 20 H 01/26/25 09:38 Blood Pressure 175/130 01/26/25 11:46 Pulse Oximetry 93 01/26/25 11:46 Oxygen Delivery Me thod Room Air 01/26/25 11:46 MDM - Extremity Injury (Upper) Medical Decision Making XR unremarkable. Recommend treatment for a contusion of the left hand including ice and elevation to help with her swelling. She can use [id number] analgesics for discomfort. Discussed return precautions regarding if her rings get too tight (again refused to have me cut them off today). Blood pressure significantly elevated here. She states she does check her blood pressure at home and it is normally normal . States that it is elevated today due to discomfort. She was provided IM Toradol prior to discharge. Recommend she continue to check her blood pressure at home and if it continues to run elevated she can follow-up with primary care provider. There is no indication for emergent lowering at this time. Medical Records I reviewed the patient's medical records. Lab Data Radiology Impressions Hand X-Ray 01/26/25 09:51 IMPRESSION: 1. No fracture or other significant finding. All radiology interpretation(s) finalized by discharge Discharge Plan Discharge Patient Disposition: Home Clinical Impression: Contusion of left hand Condition: Stable Prescriptions: No Action prednisone 20 mg tablet 20 mg PO TID Qty: 15 0RF Rx Instructions: 1 p.o. 3 times daily x3 days, 1 p.o. twice daily x2 days, 1 p.o. daily x2 days Discharge Orders: Discharge ED (Routine); Ordered 01/26/25 Ordered By: Mae Luevano Patient Instructions: Contusion, Contusion in Adults (ED) Print Language: Ukrainian Coding Level of Care Code ED Cargo Vessel Stewardess for Panda Pichardo
[2025-01-26 11:46] VITALS: BP 175/130; PULSE 98; O2SAT 93
== END 2025-01-26 12:19 | disposition home or self-care (01) ==
PROVIDERS: Emergency Provider Physician Assistant
DX: S60.222A Contusion of left hand, initial encounter (principal); F17.210 Nicotine dependence, cigarettes, uncomplicated; X58.XXXA Exposure to other specified factors, initial encounter
CPT/HCPCS: 73130; 99283

== ENCOUNTER 2025-07-26 07:59 | Emergency (ER) | payer BC, MEDICAID, SELFPAY ==
--- NOTE | 2025-07-26 08:01 | XR_ITS ---
WS: [id number] Exam: XR chest 1V portable [id number] Date/Time of Exam: 07/26/2025 8:12 AM Reason For Exam: dyspnea/cough Comparison 08/03/2023. Lungs are fully expanded and clear. Normal cardiomediastinal silhouette and regional bony elements. No pleural effusions. XR/XR chest 1V portable [id number] IMPRESSION: 1. No acute cardiopulmonary finding.
[2025-07-26 08:10] VITALS: BP 181/125; PULSE 101; RESP 16; TEMP 36.9; O2SAT 95; BMI 31.1
--- NOTE | 2025-07-26 08:12 | ECG_ITS ---
[facility] Date: 2025-07-26 Pat Name: Nilam Ellington Department: Room: Gender: Female Behavioral Interventionist: : 1975 Requested By: Rangel Hampton Order Number: [id number] Reading MD: JUAN BLANDON Measurements Intervals [place] Rate: 95 P: 56 ND: 165 QRS: -21 QRSD: 92 T: 34 QT: 349 QTc: 440 Interpretive Statements SINUS RHYTHM POSSIBLE LEFT ATRIAL ENLARGEMENT [-0.1mV P-WAVE IN V1/V2] LOW QRS VOLTAGE IN PRECORDIAL LEADS [QRS DEFLECTION < 1.0 mV IN CHEST LEADS] POSSIBLE ANTERIOR MYOCARDIAL INFARCTION , OF INDETERMINATE AGE [30 ms Q WAVE IN V3/V4, OR R < 0.2 mV IN V4] Compared to ECG 08/03/2023 09:02:34 Myocardial infarct finding now present Electronically Signed On 07-28-2025 21:37:15 CDT by JUAN BLANDON [email or web address]
[2025-07-26 08:31] LABS: Hematocrit 44.6 % (36-47); Hemoglobin 15.60 g/dL (11.27-16.99); Mean Corpuscular HGB Conc 35.0 g/dL (30-55); Mean Corpuscular Hemoglobin 33.3 pg (27-33); Mean Corpuscular Volume 95.3 fl (85-98); Nucleated Red Blood Cells % 0 %; Platelet Count 281 10^3/cmm (157-399); Red Blood Count 4.68 10^6/uL (3.85-5.65); White Blood Count 8.03 10^3/uL (3.29-11.43)
[2025-07-26 08:44] LABS: Glucose Urine UA Negative (Normal); Nitrate Urine Negative (Negative); Specific Gravity, Urine 1.015 (1.005-1.030)
[2025-07-26 08:46] LABS: Add Urine Microscopic? YES
[2025-07-26 08:55] LABS: Alanine Aminotransferase 47 U/L (0-33); Albumin Level 4.5 g/dL (3.5-5.2); Alkaline Phosphatase 119 U/L (35-105); Anion Gap 17.0 (5-19); Aspartate Amino Transferase 32 U/L (0-32); Blood Urea Nitrogen 11 mg/dL (6-20); Calcium 9.6 mg/dL (8.5-10.5); Carbon Dioxide 25 mmol/L (22-29); Chloride 99 mmol/L (98-107); Creatinine Clr Calc Pharmacy 79.5810; Globulin 3.2 g/dL (1.3-4.6); Glucose 100 mg/dL (65-115); Osmolality Calculated 283 mOsm/kg (285-295); Potassium 4.0 mmol/L (3.5-5.1); Sodium 137 mmol/L (136-145); Total Protein 7.7 g/dL (6.6-8.7)
[2025-07-26 09:10] VITALS: RESP 18; O2SAT 95
[2025-07-26] MEDS: methylPREDNISolone sod succ 125 mg/2 mL INJ IVP (09:10)
[2025-07-26] MEDS: orphenadrine 30 mg/mL Inj 2 mL 60 MG IM (09:10)
[2025-07-26] MEDS: morphine 4 mg/mL SDV 1 mL IVP (09:10)
--- NOTE | 2025-07-26 09:22 | W.ED.BACK ---
HPI - Back Pain/Injury General: Chief Complaint: Back Pain/Injury Stated Complaint: Lower Back Pain SOB Headache Time Seen by Provider: 07/26/25 08:01 History of Present Illness: 49-year-old female presents to the emergency room complaining of low back pain that she has had for the last couple of days. She also had a slight headache. She complained of some mild shortness of breath. No productive cough no wheezing no vomiting. Denies chest pain. No recent fever sweats or chills. She had been doing some heavy lifting intermittently at home moving some objects recently. Associated symptoms: Deny abdominal pain, chills, dysuria, fever(s) or urinary urgency Related Data Previous Rx's ?Medication ?Instructions ?Recorded diclofenac sodium 75 mg 75 mg PO Q12H PRN pain #20 tabs 07/26/25 tablet,delayed release tizanidine 4 mg tablet 4 mg PO Q6H PRN muscle spasticity 07/26/25 #20 tabs Allergies Allergy/AdvReac Type Severity Reaction Status Date / Time codeine Allergy rash Verified 01/26/25 09:46 fentanyl Allergy ADR-Agitate Verified 01/26/25 09:46 d Review of Systems Const: Denies: fever(s) or chills Card: Denies: chest pain Resp: Denies: dyspnea GI: Denies: abdominal pain : Denies: dysuria, urinary frequency or urinary urgency Musc: Denies: neck pain or back pain Skin/Breast: Denies: rash PFS ED PFSH: Medical History History of intravenous drug use in remission Anxiety and depression Polysubstance abuse Panic disorder [episodic paroxysmal anxiety] Nicotine dependence, unspecified, uncomplicated Unspecified asthma, uncomplicated GERD (gastroesophageal reflux disease) Hepatitis C without hepatic coma Surgical History History of hysterectomy (2009) Family History Grandfather No problems noted. Father Hypertension CAD (coronary artery disease) Dementia Mother Cancer Lung cancer Lung disease Sister Clotting disorder Other Chronic kidney disease (CKD) Hyperlipidemia Psychiatric illness Stroke Denies family history of Diabetes Suicide Anesthesia complication Bleeding disorder Social History (Reviewed 07/30/25 @ 08:03 by SARA Rajan Smoking and tobacco/nicotine status: current every day tobacco/nicotine user (1 ppd) cigarettes Packs smoked per day: 1 Alcohol intake: former Substance/Drug Use: former Physical Exam Const: COMMON NORMALS: no acute distress GENERAL APPEARANCE: cooperative and comfortable ORIENTATION/CONSCIOUSNESS: Yes awake, Yes oriented to person, Yes oriented to place and Yes oriented to time HENMT: COMMON NORMALS: normocephalic, atraumatic and hearing grossly normal bilaterally HEAD & SCALP: normocephalic and atraumatic Resp: COMMON NORMALS: normal respiratory effort, No retractions, No use of accessory muscles and clear to auscultation bilaterally AUSCULTATION: clear to auscultation bilaterally Cardio: COMMON NORMALS: regular rate, regular rhythm and No murmurs present (Cardio) RATE: regular rate RHYTHM: regular rhythm GI: COMMON NORMALS: Soft to palpation and No hepatosplenomegaly present AUSCULTATION: Yes normoactive bowel sounds PALPATION: Yes Soft to palpation, No Tenderness to palpation present (GI), No Guarding due to palpation present (GI) and Yes No hepatosplenomegaly present Extremity: COMMON NORMALS: normal to inspection, capillary refill normal, no clubbing, cyanosis or edema, no calf tenderness and no pedal edema Neuro: SENSORIUM/ORIENTATION: Yes oriented to person, Yes oriented to place and Yes oriented to time Skin: COMMON NORMALS: no rashes or lesions noted GENERAL SKIN EXAM: no rashes or lesions noted Course Vital Signs: Vital signs: Vital Signs Temperature 98.4 F 07/26/25 08:10 Pulse Rate 86 07/26/25 10:01 Respiratory Rate 18 07/26/25 09:10 Blood Pressure 171/107 07/26/25 10:01 Pulse Oximetry 95 07/26/25 10:01 Oxygen Delivery Me thod Room Air 07/26/25 08:10 MDM - Back Pain/Injury Medical Decision Making Exam unremarkable no red flag symptoms. Most of her pain is musculoskeletal in nature in her low back no trauma associated with that. Vital signs normal with the exception of elevated blood pressure. Pain improved with medications given will discharge patient home with diclofenac and tizanidine to use as needed. Follow-up with primary care if not improving Medical Records I reviewed the patient's medical records. Labs I reviewed the patient's lab results. 07/26/25 08:25 07/26/25 08:25 Radiology Impressions Chest X-Ray 07/26/25 08:01 IMPRESSION: 1. No acute cardiopulmonary finding. Laboratory Results WBC 8.03 10^3/uL (3.29-11.43) 07/26/25 08: RBC 4.68 10^6/uL (3.85-5.65) 07/26/25 08:25 Hgb 15.60 g/dL (11.27-16.99) 07/26/25 08:25 Hct 44.6 % (36-47) 07/26/25 08:25 MCV 95.3 fl (85-98) 07/26/25 08: MCH 33.3 pg (27-33) H 07/26/25 08: MCHC 35.0 g/dL (30-55) 07/26/25 08: RDW 12.0 % (12.1-15.1) L 07/26/25 08: Plt Count 281 10^3/cmm (157-399) 07/26/25 08:25 MPV 10.1 fL (7.4-10.4) 07/26/25 08:25 Neut % (Auto) 63.1 % 07/26/25 08: Lymph % (Auto) 27.6 % 07/26/25 08: [place] % (Auto) 6.1 % 07/26/25 08:25 Eos % (Auto) 2.4 % 07/26/25 08:25 Baso % (Auto) 0.4 % 07/26/25 08: Neut # (Auto) 5.07 10^3/uL (1.8-7.7) 07/26/25 08:25 Lymph # (Auto) 2.2 10^3/uL (0.8-4.8) 07/26/25 08: [place] # (Auto) 0.5 10^3/uL (0.2-0.9) 07/26/25 08:25 Eos # (Auto) 0.2 10^3/uL (0.0-0.8) 07/26/25 08:25 Baso # (Auto) 0.0 10^3/uL (0.0-0.1) 07/26/25 08:25 Nucleated RBC % (auto) 0 % 07/26/25 08:25 Nucleated RBCs # 0.0 /100WBC 07/26/25 08:25 Sodium 137 mmol/L (136-145) 07/26/25 08:25 Potassium 4.0 mmol/L (3.5-5.1) 07/26/25 08:25 Chloride 99 mmol/L (98-107) 07/26/25 08:25 Carbon Dioxide 25 mmol/L (22-29) 07/26/25 08:25 Anion Gap 17.0 (5-19) 07/26/25 08:25 BUN 11 mg/dL (6-20) 07/26/25 08:25 Creatinine 0.8 mg/dL (0.5-0.9) 07/26/25 08:25 GFR Calculation 76.6 mL/min (90-130) L 07/26/25 08:25 Glucose 100 mg/dL (65-115) 07/26/25 08:25 Calculated Osmolality 283 mOsm/kg (285-295) L 07/26/25 08:25 Calcium 9.6 mg/dL (8.5-10.5) 07/26/25 08:25 Total Bilirubin 0.2 mg/dL (0.15-1.2) 07/26/25 08: AST 32 U/L (0-32) 07/26/25 08:25 ALT 47 U/L (0-33) H 07/26/25 08:25 Alkaline Phosphatase 119 U/L (35-105) H 07/26/25 08:25 Total Protein 7.7 g/dL (6.6-8.7) 07/26/25 08:25 Albumin 4.5 g/dL (3.5-5.2) 07/26/25 08: Globulin 3.2 g/dL (1.3-4.6) 07/26/25 08:25 Urine Color Yellow (Yellow) 07/26/25 08: Urine Appearance Cloudy (CLEAR) A 07/26/25 08: Urine pH 6.0 (5-7) 07/26/25 08:31 Ur Specific [place] 1.015 (1.005-1.030) 07/26/25 08:31 Urine Protein Negative (Negative) 07/26/25 08:31 Urine Glucose (UA) Negative (Normal) 07/26/25 08:31 Urine Ketones Negative (Negative) 07/26/25 08:31 Urine Blood Negative (Negative) 07/26/25 08:31 Urine Nitrate Negative (Negative) 07/26/25 08:31 Urine Bilirubin Negative (Negative) 07/26/25 08:31 Urine Urobilinogen 0.2 mg/dL (Negative) 07/26/25 08:31 Ur Leukocyte Esterase Negative (Negative) 07/26/25 08:31 Urine RBC 0-2 /hpf (0-2) 07/26/25 08:31 Urine WBC 11-20 /hpf (0-5) H 07/26/25 08:31 Ur Squamous Epith Cells 11-20 /hpf (0-5) H 07/26/25 08:31 Amorphous Sediment Not Reportable 07/26/25 08:31 Urine Bacteria 1+ /hpf (NONE) H 07/26/25 08:31 Hyaline Casts 0-4 /lpf H 07/26/25 08:31 All radiology interpretation(s) finalized by discharge Discharge Plan Discharge Patient Disposition: Home Clinical Impression: Strain of lumbar region Condition: Stable Prescriptions: New tizanidine 4 mg tablet 4 mg PO Q6H PRN (Reason: muscle spasticity) Qty: 20 0RF Rx Instructions: do not exceed 3 doses per 24 hrs diclofenac sodium 75 mg tablet,delayed release (DR/EC) 75 mg PO Q12H PRN (Reason: pain) Qty: 20 0RF Discharge Orders: Discharge ED (Routine); Ordered 07/26/25 Ordered By: Rangel Srinivasan Discharge Diet: Usual diet Discharge Activity: Increase activity as tolerated Patient Instructions: Acute Low Back Pain (ED), Lower Back Exercises (ED), Opioid Safety, Pain Management, Patient Portal & Gianna Instructions Activity Restrictions/Additional Instructions: Thank you for choosing [facility] for your healthcare needs today. It is very important that you follow up as instructed or that you return to the Emergency Department should you have concerns or if your condition changes or worsens in any way. Emergency department visits are focused on emergent conditions, in some cases you may require further evaluation on an outpatient basis. You are seen in the emergency room with low back pain. Laboratory test done did not show any acute findings. Recommend diclofenac and tizanidine for the next week. If symptoms persist follow-up with your primary care doctor. (Please note that included in your discharge packet is information concerning opioid safety and pain management. This information is given to all patients were discharged from the ER regardless of their discharge diagnosis or the medicines they usually take or are prescribed.) Print Language: Brazilian Coding Level of Care Code ED Receiving Manager for Panda Pichardo
[2025-07-26 10:01] VITALS: BP 171/107; PULSE 86; O2SAT 95
== END 2025-07-26 10:02 | disposition home or self-care (01) ==
PROVIDERS: Emergency Provider Family Medicine
DX: S39.012A Strain of muscle, fascia and tendon of lower back, initial encounter (principal); F17.210 Nicotine dependence, cigarettes, uncomplicated; X58.XXXA Exposure to other specified factors, initial encounter
CPT/HCPCS: 36415; 71045; 80053; 81001; 85025; 93005; 96372; 96374; 96375; 99285; J1885; J2270; J2360; J2919